=== PATIENT | female | born 1985 | race African-American/Black ===

== ENCOUNTER 2019-04-03 14:55 | Emergency (ER) | payer OTHER, SELFPAY ==
[2019-04-03 15:39] VITALS: BP 139/95; PULSE 98; RESP 18; TEMP 36.4; O2SAT 100
--- NOTE | 2019-04-03 16:20 | ED.ABDPAIN ---
HPI - Abdominal Pain General Chief Complaint: Abdominal Pain Stated Complaint: Lower Back Pain Time Seen by Provider: 04/03/19 15:59 Source: patient and RN notes reviewed Mode of arrival: other Limitations: no limitations History of Present Illness HPI narrative: Pt is a 33 y/o female who presents to the ED with c/o 8/10 lower ABD pain and bilateral flank pain that began a few weeks ago, but she notes that her sx have not gone away. Pt has a hx of kidney problems and is scheduled to see a urologist next week in [place]. She states that her PCP stated her kidneys might be starting to fail. Pt also has a hx of gastroparesis with chronic nausea. She notes that she waited so long to come in because she wanted to try get her sx to resolve and wait for her appointment with her urologist. Pt reports N/V/D and back pain. MD elicited complaint: abdominal pain and flank pain Location: L flank, R flank and other (lower) Severity: moderate Pain scale (0-10): 8 Associated symptoms: nausea, vomiting, diarrhea and other (back pain) Related Data Allergies Allergy/AdvReac Type Severity Reaction Status Date / Time ciprofloxacin Allergy Unknown Rash Verified 06/16/18 13:32 morphine Allergy Unknown Rash Verified 06/16/18 13:32 sumatriptan Allergy Unknown Anaphylactic Verified 06/16/18 13:32 Shock Review of Systems Review of Systems: All systems reviewed & are unremarkable except as noted in HPI and below Gastrointestinal: Gastrointestinal: Reports abdominal pain (lower), Reports diarrhea, Reports nausea and Reports vomiting Genitourinary: Genitourinary: Reports flank pain (bilateral) Musculoskeletal: Musculoskeletal: Reports back pain [facility] Past Medical History Medical History (Updated 04/03/19 @ 18:37 by Chico Khan MD) Asthma 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 Gastroparesis HTN (hypertension) MRSA (methicillin resistant Staphylococcus aureus) to a wound on her head Pancreatitis Peripheral neuropathy Pyelonephritis Renal disease Seasonal allergies Stomach ulcer Type I diabetes mellitus UTI (urinary tract infection) Surgical History Surgical History (Updated 04/03/19 @ 17:01 by Allyson Brunson) H/O removal of cyst and tumor removal from head Hx of cholecystectomy Social History Social History (Updated 04/03/19 @ 16:28 by Allyson Brunson) Smoking status: Never smoker Gender identity (if verbalized by the patient): Female Exam Const: General: healthy appearing, no acute distress and well developed Nutritional Appearance: well nourished Orientation/consciousness: patient oriented x3 (alert) and Other orientation findings (Alert) Limitations: no limitations HENMT: Head: normocephalic and atraumatic Ears: external ears normal General nose exam: No nasal discharge present and no epistaxis Face and sinus: face symmetric Mouth: Yes lip normal, Yes tongue normal and Yes moist mucous membranes Throat: other (No exudate, no erythema) Eyes: Conjunctivae: conjunctivae normal Sclera: sclerae normal EOM: EOMs intact bilaterally Neck: Neck: full ROM, no lymphadenopathy and supple Thyroid: thyroid normal Resp: Effort & Inspection: normal respiratory effort Auscultation: clear to auscultation bilaterally, no rales, no rhonchi, no wheezes and other (breath sounds equal) Cardio: Rate: regular rate Rhythm: regular rhythm Heart sounds: no gallops and no murmurs GI: Inspection: non-distended GI Palp: Yes abdominal tenderness (mild diffuse), Yes Soft to palpation, No Guarding due to palpation present (GI), No Palpable mass present and No Rebound tenderness present Auscultation: other (bowel sounds present) Back/Spine/Pelvis: Back: no CVA tenderness and back tenderness (generalized) Thoracic/Lumbar Spine: thoracic and lumbar spine normal to inspection Skin: General skin exam: normal color and no rashes or lesions noted Neuro: General: patient oriented x3 (alert), moves all extremities and no focal motor deficits Cranial n
[2019-04-03 16:33] LABS: Basophils Percent Auto 0.3 % (0.2-1.2); Eosinophils Absolute Auto 0.1 K/mm3 (0-0.3); Eosinophils Percent Auto 0.5 % (0-4.4); Hematocrit 39.4 % (37.0-47.0); Hemoglobin 13.4 g/dL (12.0-15.0); Immature Granulocyte Absolute 0.07 K/mm3 (0.00-0.031); Immature Granulocyte Percent A 0.5 % (0-0.5); Lymphocytes Absolute Auto 4.18 K/mm3 (0.9-3.2); Lymphocytes Percent Auto 32.5 % (18.3-44.2); Mean Corpuscular Hemoglobin 29.5 pg (26-34); Mean Corpuscular Volume 86.8 fl (80-100); Mean Platelet Volume 11.9 fl (7.4-10.4); Monocytes Absolute Auto 0.9 K/mm3 (0.1-0.6); Monocytes Percent Auto 6.6 % (2.6-8.5); Neutrophils Absolute Auto 7.6 K/mm3 (1.3-6.7); Neutrophils Percent Auto 59.6 % (45.5-73.1); Platelet Count Result 332 k/mm3 (150-375); Red Blood Count 4.54 M/mm3 (4.2-5.4); Red Cell Distribution Width 12.2 % (11.5-14.5); White Blood Count 12.9 K/mm3 (4.5-10.0)
[2019-04-03 16:36] LABS: Add Urine Microscopic? YES; Appearance Urine Clear (Clear); Bacteria Urine 4+ /hpf; Bilirubin Urine Negative (Negative); Blood Urine 1+ (Negative); Color Urine Yellow (Yellow); Glucose Urine UA 1+ mg/dL (Negative); Ketones Urine Negative (Negative); Leukocyte Esterase Ur Negative LEU/UL (Negative); Nitrate Urine Negative (Negative); Protein Urine 3+ mg/dL (Negative); Specific Grav Ur 1.012 (1.001-1.035); Squamous Epithelial Cell Urine Rare /hpf (Few); Urobilinogen Urine Negative mg/dL (<2.0); WBC Urine 0-3 /hpf
[2019-04-03 17:00] LABS: Alanine Aminotransferase 86 U/L (4-35); Albumin Level 3.6 g/dL (3.5-5.1); Alkaline Phosphatase 136 U/L (38-126); Aspartate Amino Transferase 57 U/L (14-36); Bilirubin,Total 0.3 mg/dL (0.2-1.3); Blood Urea Nitrogen 18 mg/dL (7-17); Calcium 8.9 mg/dL (8.4-10.2); Carbon Dioxide 30 mmol/L (22-30); Chloride 99 mmol/L (98-107); Estimated CRCL calculation 73 ml/min; Estimated Glomerular Filt Rate > 60; Glucose 156 mg/dL (65-105); Lipase 547 U/L (23-300); Sodium 137 mmol/L (137-145)
[2019-04-03] MEDS: DICYCLOMINE HCL INJ 20 MG/2 ML VIAL IM (17:13)
[2019-04-03 17:47] LABS: Cholesterol 267 mg/dL (0-200); HDL Direct 90 mg/dL; Triglycerides 151 mg/dL (<150)
[2019-04-03 17:58] LABS: LDL Cholesterol Direct 136 mg/dL
[2019-04-03 18:07] VITALS: BP 140/99; PULSE 80; RESP 16; O2SAT 100
[2019-04-03 19:25] VITALS: BP 143/91; PULSE 98; RESP 17; TEMP 36.6; O2SAT 98
== END 2019-04-03 19:28 | disposition home or self-care (01) ==
PROVIDERS: Emergency Provider Emergency Medicine; PCP Physician Assistant
DX: K85.90 Acute pancreatitis without necrosis or infection, unspecified (principal); J45.909 Unspecified asthma, uncomplicated; E10.43 Type 1 diabetes mellitus with diabetic autonomic (poly)neuropathy; E10.42 Type 1 diabetes mellitus with diabetic polyneuropathy; K31.84 Gastroparesis; I10 Essential (primary) hypertension; N28.9 Disorder of kidney and ureter, unspecified; Z86.14 Personal history of Methicillin resistant Staphylococcus aureus infection
CPT/HCPCS: 36415; 80053; 80061; 81001; 81025; 83690; 85025; 96372; 99283; J0500

== ENCOUNTER 2021-05-04 14:18 | Outpatient (CLI) | payer OTHER, SELFPAY ==
--- NOTE | 2021-05-04 | ECHO_ITS ---
Patient Info Name: Jayshree Carter Age: 35 years : 1985 Gender: Female Ht: 64 in Wt: 202 lbs BSA: 2.07 m2 HR: 87 bpm BP: 144 / 83 mmHg Technical Quality: Good Exam Date: 05/04/2021 3:22 PM Exam Location: [facility] Patient Status: Outpatient Admit Date: 05/04/2021 Staff Ordering Physician: Caro, Lory GRIFFIN Regulatory Consultant: Snehal Downs RDCS Attending Provider: Caro, Lory GRIFFIN Referring Physician: Caro DAVIS; Exam Type: CA echo doppler color flow Study Info Indications - HEART MURMUR Complete two-dimensional, color flow and Doppler transthoracic echocardiogram is performed. Summary 1. Complete two-dimensional, color flow and Doppler transthoracic echocardiogram is performed. 2. Left ventricular chamber dimension is normal. 3. Left ventricular systolic function is hyperdynamic, estimated at >70%. 4. There is mildly increased left ventricular wall thickness. 5. The left ventricular diastolic function is abnormal. 6. E/e' 11 is mildly elevated. 7. There is moderate aortic valve sclerosis. 8. There is trace mitral valve regurgitation. 9. No pulmonary hypertension, estimated pulmonary arterial systolic pressure is 31 mmHg. Left Ventricle E/e' 11 is mildly elevated. Left ventricular chamber dimension is normal. Left ventricular systolic function is hyperdynamic, estimated at >70%. There is mildly increased left ventricular wall thickness. The left ventricular diastolic function is abnormal. Right Ventricle Right ventricular chamber dimension is normal. Right ventricular systolic function is normal. Left Atria Left atrial chamber dimension is normal. Right Atria Right atrial chamber dimension is normal. Aortic Valve The aortic valve is trileaflet. There is moderate aortic valve sclerosis. There is no aortic valve stenosis. There is no aortic valve regurgitation. Pulmonic Valve There is no pulmonic regurgitation. Mitral Valve There is no mitral valve stenosis. There is trace mitral valve regurgitation. Tricuspid Valve There is no tricuspid valve regurgitation. No pulmonary hypertension, estimated pulmonary arterial systolic pressure is 31 mmHg. Pericardium/Pleural There is no pericardial effusion. Inferior Vena Cava Normal inferior vena cava with >50% collapse upon inspiration consistent with normal right atrial pressure, 5 mmHg. Aorta The aortic root size at the sinus of Valsalva is normal. Left Ventricular Outflow Tract Name Value Normal LVOT 2D LVOT Diameter 2.0 cm LVOT Doppler LVOT Peak Gradient 7 mmHg LVOT Mean Gradient 4 mmHg LVOT VTI 27 cm LVOT VTI/AV VTI Ratio 0.7 LVOT Stroke Volume 84 ml LVOT CO 18.2 l/min LVOT CI 8.8 l/min/m2 Pulmonic Valve Name Value Normal
[2021-05-04 15:06] LABS: Basophils Percent Auto 0.4 % (0.2-1.2); Eosinophils Absolute Auto 0.1 K/mm3 (0-0.3); Eosinophils Percent Auto 0.8 % (0-4.4); Hematocrit 34.4 % (37.0-47.0); Hemoglobin 11.4 g/dL (12.0-15.0); Immature Granulocyte Absolute 0.04 K/mm3 (0.00-0.031); Immature Granulocyte Percent A 0.4 % (0-0.5); Lymphocytes Absolute Auto 3.87 K/mm3 (0.9-3.2); Lymphocytes Percent Auto 37.2 % (18.3-44.2); Mean Corpuscular HGB Conc 33.1 g/dl (32-36); Mean Corpuscular Hemoglobin 29.5 pg (26-34); Mean Corpuscular Volume 88.9 fl (80-100); Mean Platelet Volume 11.2 fl (7.4-10.4); Monocytes Absolute Auto 0.7 K/mm3 (0.1-0.6); Monocytes Percent Auto 6.5 % (2.6-8.5); Neutrophils Absolute Auto 5.7 K/mm3 (1.3-6.7); Neutrophils Percent Auto 54.7 % (45.5-73.1); Platelet Count Result 280 k/mm3 (150-375); Red Blood Count 3.87 M/mm3 (4.2-5.4); Red Cell Distribution Width 12.9 % (11.5-14.5); White Blood Count 10.4 K/mm3 (4.5-10.0)
[2021-05-04 15:17] LABS: Add Urine Microscopic? YES; Appearance Urine Clear (Clear); Bilirubin Urine Negative (Negative); Blood Urine 1+ (Negative); Color Urine Straw (Yellow); Glucose Urine UA Negative (Negative); Ketones Urine Negative (Negative); Leukocyte Esterase Ur Negative LEU/UL (NEGATIVE); Mucus Urine Rare /lpf; Nitrate Urine Negative (Negative); Protein Urine 2+ mg/dL (Negative); RBC Urine 0-2 /hpf (0-2); Specific Grav Ur 1.008 (1.001-1.035); Squamous Epithelial Cell Urine Rare /hpf (Few); Urobilinogen Urine Negative mg/dL (<2.0)
[2021-05-04 17:35] LABS: HIV 1/2 Ab P24 Ag Result Negative (Negative)
[2021-05-04 17:44] LABS: Hepatitis C Virus Antibody Negative (Negative)
[2021-05-05 07:54] LABS: Rapid Plasma Reagin Non-Reactive (NonReactive)
== END 2021-05-04 14:19 | disposition home or self-care (01) ==
PROVIDERS: PCP Physician Assistant; Visit Provider Physician Assistant
DX: R00.2 Palpitations (principal); R01.1 Cardiac murmur, unspecified; E04.9 Nontoxic goiter, unspecified; N39.0 Urinary tract infection, site not specified; M25.50 Pain in unspecified joint; Z20.2 Contact with and (suspected) exposure to infections with a predominantly sexual mode of transmission; I70.0 Atherosclerosis of aorta; I34.0 Nonrheumatic mitral (valve) insufficiency
CPT/HCPCS: 36415; 81001; 84443; 85025; 86592; 86703; 86803; 87086; 93306; G0432